=== PATIENT | female | born 1980 | race Caucasian/White ===

== ENCOUNTER 2019-01-02 18:30 | Emergency (ER) | payer BC ==
[~2019-01-02] VITALS: Ht 162.6 cm; Wt 99.8 kg
[~2019-01-02 18:30] MED LIST: CELEXA 20 MG TA20 MG PO; NEXAVAR200 MG PO; PERCOCET 5-3251 EACH
[2019-01-02] MEDS ORDERED: CYMBALTA30 MG PO (18:44)
[2019-01-02] MEDS ORDERED: ZYRTEC10 M5 PO (18:45)
[2019-01-02] MEDS ORDERED: LIPITOR 20 MG T20 M1 PO (18:45)
[2019-01-02] MEDS ORDERED: HYDROCORTISONE30 G9 RECTAL (18:45)
[2019-01-02] MEDS ORDERED: NORCO 7.5-3251 EACH PO (18:45)
[2019-01-02 18:54] LABS: URINE BILIRUBIN NEGATIVE (Negative); URINE BLOOD 2+ (Negative); URINE CLARITY CLEAR; URINE COLOR YELLOW; URINE GLUCOSE-RANDOM NEGATIVE (Negative); URINE KETONES TRACE (Negative); URINE LEUKOCYTES NEGATIVE (Negative); URINE NITRITE NEGATIVE (Negative); URINE PROTEIN 2+ (Negative); URINE SPECIFIC GRAVITY >= 1.030 (1.005-1.030); URINE UROBILINOGEN 0.2 E.U./dl (0.2-1.0)
[2019-01-02 19:00] LABS: BACTERIA 1-9 Few /HPF (None Seen); CASTS None Seen /LPF (None Seen); CRYSTALS None Seen /LPF (None Seen); MUCUS 0-3 Light strn/LPF (None Seen); SQUAMOUS 4-10 Moderate /LPF (0-3); URINE RBC 0-2 Rare /HPF (0-2); URINE WBC 0-5 Rare /HPF (0-5)
[2019-01-02 19:03] LABS: ABSOLUTE BASOPHILS 0.1 thou/uL (0.0-0.2); ABSOLUTE EOSINOPHILS 0.1 thou/uL (0.0-0.7); ABSOLUTE LYMPHOCYTES 3.3 thou/uL (0.8-5.3); ABSOLUTE MONOCYTES 0.6 thou/uL (0.0-1.2); ABSOLUTE NEUTROPHILS 9.5 thou/uL (1.6-8.1); BASOPHILS 0.6 %; EOSINOPHILS 0.9 %; HEMATOCRIT 39.9 % (37.0-47.0); HEMOGLOBIN 13.5 gm/dL (12.0-15.0); LYMPHOCYTES 24.2 %; MCH 29.6 pg (26.0-34.0); MCHC 33.8 g/dL (28.0-37.0); MCV 87.6 fL (80.0-100.0); MONOCYTES 4.2 %; NUCLEATED RBCS 0 /100WBC; PLATELET COUNT* 240 thou/uL (150-400); POLYS 70.1 %; RBC 4.55 mil/uL (4.20-5.00); RDW-CV 16.6 % (10.5-14.5); WBC 13.5 thou/uL (4.0-11.0)
[2019-01-02 19:15] LABS: ALBUMIN 2.6 g/dL (3.4-5.0); CALCIUM 6.7 mg/dL (8.5-10.1); CREATININE 0.4 mg/dL (0.6-1.3); TOTAL BILIRUBIN 0.4 mg/dL (<0.1-1.0); TOTAL PROTEIN 5.5 g/dL (6.4-8.2)
[2019-01-02 19:17] LABS: POTASSIUM 2.9 mmol/L (3.5-5.1)
[2019-01-02] MEDS ORDERED: ZOFRAN ODT4 MG DISSOLVE (20:30)
[2019-01-02 21:12] VITALS: BP 137/75
--- NOTE | 2019-01-03 12:31 | EKG ---
[place] [address] ELECTROCARDIOGRAM REPORT Name: KELSEA POOLE Room: [facility]#: [id number] Admission: 01/02/19 Attend Phys: Discharge: 01/02/19 Date of : 78 Report #: [id number] THIS REPORT FOR: //name// [facility] ED Test Date: 2019-01-02 Test Time: 18:47:17 Pat Name: KELSEA POOLE Department: Room: Gender: F Swatcher: MARIBETH : 1980 Requested By: Balbir Lomeli Order Number: [id number] MD: Geovanni You Measurements Intervals [place] Rate: 75 P: 11 HI: 125 QRS: -23 QRSD: 95 T: 4 QT: 402 QTc: 449 Interpretive Statements Sinus rhythm Borderline left axis deviation Compared to ECG 04/30/2013 13:10:19 No significant changes Electronically Signed On 01-03-2019 12:31:29 CDT by Geovanni You [email or web address] <ELECTRONICALLY SIGNED> By: Geovanni You MD, [facility] 01/03/19 1231 1847 1847 Geovanni You MD, FACC /EPI
== END 2019-01-02 21:00 | disposition home or self-care (01) ==
LOC: M.ERS 18:30
PROVIDERS: Nurse Practitioner Family
DX: G43.909 Migraine, unspecified, not intractable, without status migrainosus (principal); E87.6 Hypokalemia; R11.2 Nausea with vomiting, unspecified; Z88.2 Allergy status to sulfonamides

== ENCOUNTER 2020-02-12 15:18 | Emergency (ER) | payer BC ==
[~2020-02-12] VITALS: Ht 162.6 cm; Wt 99.8 kg
[~2020-02-12 15:18] MED LIST changes: +CYMBALTA30 MG PO; +HYDROCORTISONE30 G9 RECTAL; +LIPITOR 20 MG T20 M1 PO; +NORCO 7.5-3251 EACH PO; +ZOFRAN ODT4 MG DISSOLVE; +ZYRTEC10 M5 PO
[2020-02-12] MEDS ORDERED: HYDROCORTISONE (15:36)
[2020-02-12 15:47] LABS: URINE BILIRUBIN NEGATIVE (Negative); URINE BLOOD NEGATIVE (Negative); URINE CLARITY CLEAR; URINE COLOR YELLOW; URINE GLUCOSE-RANDOM NEGATIVE (Negative); URINE KETONES NEGATIVE (Negative); URINE LEUKOCYTES-REFLEX NEGATIVE (Negative); URINE NITRITE-REFLEX NEGATIVE (Negative); URINE PROTEIN NEGATIVE (Negative); URINE SPECIFIC GRAVITY 1.025 (1.005-1.030); URINE UROBILINOGEN 0.2 E.U./dl (0.2-1.0)
[2020-02-12 15:49] LABS: ABSOLUTE BASOPHILS 0.1 thou/uL (0.0-0.2); ABSOLUTE EOSINOPHILS 0.1 thou/uL (0.0-0.7); ABSOLUTE LYMPHOCYTES 3.3 thou/uL (0.8-5.3); ABSOLUTE MONOCYTES 0.6 thou/uL (0.0-1.2); ABSOLUTE NEUTROPHILS 9.2 thou/uL (1.6-8.1); BASOPHILS 0.4 %; EOSINOPHILS 0.5 %; HEMATOCRIT 36.8 % (37.0-47.0); HEMOGLOBIN 12.2 gm/dL (12.0-15.0); LYMPHOCYTES 25.1 %; MCH 27.4 pg (26.0-34.0); MCHC 33.2 g/dL (28.0-37.0); MCV 82.3 fL (80.0-100.0); MONOCYTES 4.2 %; MPV 8.2 fl. (7.2-11.1); NUCLEATED RBCS 0 /100WBC; PLATELET COUNT* 263 thou/uL (150-400); POLYS 69.8 %; RBC 4.47 mil/uL (4.20-5.00); RDW-CV 15.6 % (10.5-14.5); WBC 13.1 thou/uL (4.0-11.0)
[2020-02-12 15:57] LABS: CALCIUM 8.6 mg/dL (8.5-10.1); CREATININE 0.7 mg/dL (0.6-1.3); POTASSIUM 3.4 mmol/L (3.5-5.1)
[2020-02-12 16:02] LABS: ALBUMIN 3.8 g/dL (3.4-5.0); TOTAL BILIRUBIN 0.5 mg/dL (<0.1-1.0); TOTAL PROTEIN 7.9 g/dL (6.4-8.2)
[2020-02-12 17:41] VITALS: BP 125/75
--- NOTE | 2020-02-14 12:09 | EKG ---
[place] [address] ELECTROCARDIOGRAM REPORT Name: KELSEA POOLE Room: [facility]#: [id number] Admission: 02/12/20 Attend Phys: Discharge: 02/12/20 Date of : 78 Date of Service: 02/12/20 1541 Report #: [id number] THIS REPORT FOR: //name// [facility] ED Test Date: 2020-02-12 Test Time: 15:41:39 Pat Name: KELSEA POOLE Department: Room: Gender: F Brim Rounder: [facility] : 1980 Requested By: Magdi Rodriguez Order Number: [id number] MD: Stevie Griffin Measurements Intervals [place] Rate: 85 P: 49 RI: 141 QRS: -27 QRSD: 94 T: 13 QT: 377 QTc: 449 Interpretive Statements Sinus rhythm Borderline left axis deviation Low voltage, precordial leads Consider anterior infarct Compared to ECG 01/02/2019 18:47:17 Low QRS voltage now present Electronically Signed On 02-14-2020 12:07:02 CDT by Stevie Griffin [email or web address] <ELECTRONICALLY SIGNED> By: Stevie Griffin MD, [facility] 02/14/20 1207 1541 1541 Stevie Griffin MD, [facility] /EPI
== END 2020-02-12 17:42 | disposition home or self-care (01) ==
LOC: M.ERS 15:18
PROVIDERS: Physician Assistant
DX: E27.2 Addisonian crisis (principal); Z88.2 Allergy status to sulfonamides

== ENCOUNTER 2020-09-29 23:36 | Emergency (ER) | payer BC ==
[~2020-09-29] VITALS: Ht 162.6 cm; Wt 104.7 kg
[~2020-09-29 23:36] MED LIST changes: +HYDROCORTISONE
[2020-09-29 23:59] LABS: URINE BILIRUBIN NEGATIVE (Negative); URINE BLOOD 1+ (Negative); URINE CLARITY CLEAR; URINE COLOR YELLOW; URINE GLUCOSE-RANDOM NEGATIVE (Negative); URINE KETONES NEGATIVE (Negative); URINE LEUKOCYTES-REFLEX NEGATIVE (Negative); URINE NITRITE-REFLEX NEGATIVE (Negative); URINE PROTEIN TRACE (Negative); URINE SPECIFIC GRAVITY >= 1.030 (1.005-1.030); URINE UROBILINOGEN 0.2 E.U./dl (0.2-1.0)
[2020-09-30 00:03] LABS: ABSOLUTE BASOPHILS 0.1 thou/uL (0.0-0.2); ABSOLUTE EOSINOPHILS 0.1 thou/uL (0.0-0.7); ABSOLUTE LYMPHOCYTES 4.8 thou/uL (0.8-5.3); ABSOLUTE MONOCYTES 0.8 thou/uL (0.0-1.2); ABSOLUTE NEUTROPHILS 6.2 thou/uL (1.6-8.1); BASOPHILS 1.1 %; EOSINOPHILS 0.8 %; HEMATOCRIT 37.1 % (37.0-47.0); HEMOGLOBIN 12.5 gm/dL (12.0-15.0); LYMPHOCYTES 40.1 %; MCH 27.2 pg (26.0-34.0); MCHC 33.6 g/dL (28.0-37.0); MCV 80.9 fL (80.0-100.0); MONOCYTES 6.5 %; MPV 7.7 fl. (7.2-11.1); NUCLEATED RBCS 0 /100WBC; PLATELET COUNT* 316 thou/uL (150-400); POLYS 51.5 %; RBC 4.58 mil/uL (4.20-5.00); RDW-CV 15.9 % (10.5-14.5); WBC 12.1 thou/uL (4.0-11.0)
[2020-09-30] MEDS ORDERED: VOTRIENT200 MG PO (00:09)
[2020-09-30 00:16] LABS: SQUAMOUS 4-10 Moderate /LPF (0-3); TRANSITIONAL EPITHEL CELL 0-3 Few /LPF (None Seen); URINE WBC-REFLEX 0-5 Rare /HPF (0-5)
[2020-09-30 00:16] LABS: CALCIUM 9.4 mg/dL (8.5-10.1); CREATININE 0.7 mg/dL (0.6-1.3); POTASSIUM 4.1 mmol/L (3.5-5.1)
[2020-09-30 00:17] LABS: BACTERIA-REFLEX >30 Many /HPF (None Seen); CASTS None Seen /LPF (None Seen); MUCUS 4-6 Moderate strn/LPF (None Seen); URINE RBC 3-10 Few /HPF (0-2)
[2020-09-30 00:18] LABS: CRYSTALS None Seen /LPF (None Seen)
[2020-09-30 00:21] LABS: TOTAL BILIRUBIN 0.6 mg/dL (<0.1-1.0); TOTAL PROTEIN 7.8 g/dL (6.4-8.2)
[2020-09-30 03:51] VITALS: BP 152/100
== END 2020-09-30 03:51 | disposition home or self-care (01) ==
LOC: M.ERS 23:36
PROVIDERS: Emergency Medicine
DX: R51.9 Headache, unspecified (principal); R11.0 Nausea; Z79.899 Other long term (current) drug therapy; Z88.2 Allergy status to sulfonamides